=== PATIENT | male | born 1965 | race African-American/Black ===

== ENCOUNTER 2019-04-20 10:36 | Emergency (ER) | payer MEDICAID ==
[~2019-04-20] VITALS: Ht 182.9 cm; Wt 104.5 kg
[2019-04-20 10:41] VITALS: Ht 182.9 cm; Wt 104.5 kg
[2019-04-20] MEDS ORDERED: HYDROCODON-ACE1 EA10 PO (14:02)
[2019-04-20 14:31] VITALS: BP 142/82
== END 2019-04-20 14:31 | disposition home or self-care (01) ==
LOC: D.ER 10:36
DX: M50.30 Other cervical disc degeneration, unspecified cervical region (principal)

== ENCOUNTER 2019-07-12 10:25 | Inpatient (IN) | payer OTHER ==
[~2019-07-12] VITALS: Ht 182.9 cm; Wt 99.7 kg
[~2019-07-12 10:25] MED LIST: HYDROCODON-ACE1 EA10 PO
[2019-07-12 11:33] LABS: BASOPHILS 0.1 % (0-2); EOSINOPHILS 0 % (0-7); HEMATOCRIT 44.1 % (42.0-54.0); IMMATURE GRANULOCYTES 0.5 % (0-5); LYMPHOCYTES 5.7 % (15-50); MCH 33.3 pg (26.0-34.0); MCV 97.8 fL (80.0-100.0); MEAN PLATELET VOLUME 9.9 fL (7.4-10.4); MONOCYTES 5.3 % (2-11); NEUTROPHILS 88.4 % (40-80); PLATELET COUNT 188 10x3/uL (130-400); RBC 4.51 10x6/uL (4.20-6.10); RDW 11.9 % (11.5-14.5)
[2019-07-12 11:44] LABS: ANION GAP 10.8 mmol/L (8-16); CARBON DIOXIDE 26.6 mmol/L (21.0-32.0); CREATININE - SERUM 1.3 mg/dL (0.6-1.3); POTASSIUM - SERUM 3.4 mmol/L (3.5-5.1)
[2019-07-12 11:52] LABS: ALBUMIN 3.6 g/dL (3.4-5.0); BILIRUBIN - TOTAL 1.08 mg/dL (0.2-1.3); PROTEIN - SERUM 7.3 g/dL (6.4-8.2)
[2019-07-12 12:00] LABS: APPEARANCE HAZY (CLEAR); BILIRUBIN NEGATIVE (NEGATIVE); COLOR YELLOW (YELLOW); GLUCOSE NEGATIVE (NEGATIVE); KETONE MODERATE mg/dL (NEGATIVE); NITRITE POSITIVE (NEGATIVE); PROTEIN 1+ mg/dL (NEGATIVE); UROBILINOGEN NORMAL (NORMAL)
[2019-07-12 12:05] LABS: BACTERIA MANY /hpf (NEGATIVE); WHITE CELLS - URINE >50 /hpf (NEGATIVE)
--- NOTE | 2019-07-12 13:35 | NUR ---
PT RESTING IN BED TALKING WITH FAMILY AT BEDSIDE. WILL CON'T TO MONITOR FOR CHANGES
--- NOTE | 2019-07-12 13:43 | NUR ---
ANNEMARIE GONZALES, AT BEDSIDE.
--- NOTE | 2019-07-12 14:05 | NUR ---
RECEIVED PT TO ROOM 2129 VIA WHEELCHAIR, PT ABLE TO AMBULATE WITH NO PROBLEMS. PT A/O X4, RESP EVEN AND NONLABORED ON RA. ORIENTED PT TO ROOM AND CALL LIGHT. WILL ASSESS PT AND START PLAN OF CARE.
[2019-07-12 14:33] VITALS: BP 148/95; BMI 28.8
[2019-07-12 15:58] VITALS: BP 148/95
[2019-07-12 18:29] LABS: APTT 27.5 SECONDS (22.8-39.4); INR 1.16 (0.85-1.17); PROTIME 14.3 SECONDS (11.6-15.0)
--- NOTE | 2019-07-12 19:20 | NUR ---
RECEIVED REPORT, WILL ASSUME CARE OF PT, AT BED SIDE, DENIES ANY NEEDS, BED IS LOW, SRX2, CALL LIGHT IN REACH, WILL CONTINUE PLAN OF CARE
[2019-07-12 19:48] VITALS: BP 145/103
[2019-07-12 20:08] VITALS: BP 124/74
[2019-07-12 23:50] VITALS: BP 130/88
--- NOTE | 2019-07-13 01:36 | NUR ---
I have reviewed this patient and I concur with the Shift Assessment completed by the Licensed Practical Nurse today this shift.
[2019-07-13 04:00] VITALS: BP 113/74
[2019-07-13 05:40] LABS: BASOPHILS 0.1 % (0-2); EOSINOPHILS 0.1 % (0-7); HEMATOCRIT 39.8 % (42.0-54.0); HEMOGLOBIN 13.5 g/dL (13.5-17.5); IMMATURE GRANULOCYTES 0.3 % (0-5); LYMPHOCYTES 6.8 % (15-50); MCH 33.3 pg (26.0-34.0); MCHC 33.9 g/dL (31.0-37.0); MONOCYTES 8.5 % (2-11); NEUTROPHILS 84.2 % (40-80); PLATELET COUNT 157 10x3/uL (130-400); RBC 4.06 10x6/uL (4.20-6.10)
[2019-07-13 05:47] LABS: WBC 14.4 10x3/uL (4.8-10.8)
[2019-07-13 06:06] LABS: ANION GAP 10.2 mmol/L (8-16); BILIRUBIN - TOTAL 0.81 mg/dL (0.2-1.3); CALCIUM 8.4 mg/dL (8.5-10.1); CARBON DIOXIDE 24.3 mmol/L (21.0-32.0); CREATININE - SERUM 1.3 mg/dL (0.6-1.3); GENTAMICIN - PEAK 0.6 ug/mL (5.0-10.0); POTASSIUM - SERUM 3.5 mmol/L (3.5-5.1)
[2019-07-13 07:52] VITALS: BP 117/79
[2019-07-13 12:00] VITALS: BP 130/76
[2019-07-13 15:47] VITALS: BP 147/95
[2019-07-13 20:00] VITALS: BP 116/95
[2019-07-14 00:34] VITALS: BP 141/87
[2019-07-14 04:00] VITALS: BP 136/89
[2019-07-14 05:53] LABS: BASOPHILS 0.1 % (0-2); EOSINOPHILS 1.5 % (0-7); HEMATOCRIT 37.2 % (42.0-54.0); HEMOGLOBIN 12.6 g/dL (13.5-17.5); IMMATURE GRANULOCYTES 0.2 % (0-5); LYMPHOCYTES 12.5 % (15-50); MCH 32.7 pg (26.0-34.0); MCHC 33.9 g/dL (31.0-37.0); MCV 96.6 fL (80.0-100.0); MEAN PLATELET VOLUME 10.3 fL (7.4-10.4); MONOCYTES 12.8 % (2-11); NEUTROPHILS 72.9 % (40-80); PLATELET COUNT 179 10x3/uL (130-400); RBC 3.85 10x6/uL (4.20-6.10); RDW 11.9 % (11.5-14.5)
[2019-07-14 05:57] LABS: WBC 8.4 10x3/uL (4.8-10.8)
[2019-07-14 06:37] LABS: ALBUMIN 2.6 g/dL (3.4-5.0); BILIRUBIN - TOTAL 0.43 mg/dL (0.2-1.3); CARBON DIOXIDE 24.4 mmol/L (21.0-32.0); CREATININE - SERUM 1.1 mg/dL (0.6-1.3); POTASSIUM - SERUM 3.4 mmol/L (3.5-5.1); PROTEIN - SERUM 6.6 g/dL (6.4-8.2)
--- NOTE | 2019-07-14 07:16 | NUR ---
PT RESTING PEACEUFLLY. BREATHS EVEN/REGUALR AND UNLABORED. AT BEDSIDE. NO COMPLAINTS/CONCERNS NOTED AT THIS TIME. CL IN REACH, SRX2.
[2019-07-14 07:38] VITALS: BP 133/88
[2019-07-14 10:59] VITALS: Ht 182.9 cm; Wt 99.7 kg
[2019-07-14 11:27] VITALS: BP 138/101
[2019-07-14 15:06] VITALS: BP 133/93
--- NOTE | 2019-07-14 15:15 | NUR ---
I have reviewed this patient and I concur with the Shift Assessment completed by the Licensed Practical Nurse today this shift.
--- NOTE | 2019-07-14 17:56 | NUR ---
RESITED I/V LFA. PT SCREAMED. I/V WORKS WELL. 20G
--- NOTE | 2019-07-14 19:30 | NUR ---
RECEIVED BEDSIDE REPORT. PATIENT IS ALERT AND ORIENTED, SITTING ON SIDE OF BED. PATIENT VERY EXCITED THAT HE HAS ATE ALOT OF FOOD TONIGHT. RESPIRATIONS ARE EVEN AND UNLABORED. NO S/S OF DISTRESS. NO C/O PAIN. CALL LIGHT WITHIN REACH. WILL CPOC.
[2019-07-14 20:00] VITALS: BP 160/107
[2019-07-15] VITALS: BP 155/86
[2019-07-15 04:27] VITALS: BP 111/73
[2019-07-15 05:56] LABS: BASOPHILS 0.2 % (0-2); EOSINOPHILS 1.5 % (0-7); HEMATOCRIT 40.1 % (42.0-54.0); HEMOGLOBIN 13.7 g/dL (13.5-17.5); IMMATURE GRANULOCYTES 0.2 % (0-5); LYMPHOCYTES 21.2 % (15-50); MCH 32.9 pg (26.0-34.0); MCHC 34.2 g/dL (31.0-37.0); MCV 96.4 fL (80.0-100.0); MEAN PLATELET VOLUME 10.1 fL (7.4-10.4); MONOCYTES 18.5 % (2-11); NEUTROPHILS 58.4 % (40-80); PLATELET COUNT 199 10x3/uL (130-400); RBC 4.16 10x6/uL (4.20-6.10); WBC 5.3 10x3/uL (4.8-10.8)
[2019-07-15 05:59] LABS: ANION GAP 12.2 mmol/L (8-16); BILIRUBIN - TOTAL 0.33 mg/dL (0.2-1.3); CALCIUM 8.7 mg/dL (8.5-10.1); CARBON DIOXIDE 24.1 mmol/L (21.0-32.0); CREATININE - SERUM 1.1 mg/dL (0.6-1.3); POTASSIUM - SERUM 3.3 mmol/L (3.5-5.1); PROTEIN - SERUM 7.2 g/dL (6.4-8.2)
[2019-07-15 07:37] VITALS: BP 134/89
--- NOTE | 2019-07-15 08:00 | NUR ---
PATIENT RESTING QIUETLY IN THE BED WITH EYES CLOSED. AT BEDSIDE. IV TO THE LEFT FOREARM IS INFUSING NORMAL SALINE. BREAKFAST TRAY SITTING TO THE SIDE OF THE PATIENT UNTOUCHED. THERE ARE NO COMPLAINTS OF PAIN AT THIS TIME. BED IS IN LOW POSITION AND CALL LIGHT IS IN REACH.
[2019-07-15 11:10] VITALS: BP 122/88
[2019-07-15] MEDS ORDERED: PROTONIX40 MG PO (12:27)
[2019-07-15] MEDS ORDERED: CIPRO500 MG PO (12:27)
--- NOTE | 2019-07-15 13:34 | NUR ---
UPON ADMIT PATIENT HAS NOT HAD A FLU SHOT. HE IS GOING HOME ON [facility] FOR ONE MONTH. WILL NOT GET A FLU SHOT AT THIS TIME.
--- NOTE | 2019-07-15 13:41 | MORECARE ---
CASE MANAGEMENT DISCHARGE SUMMARY PATIENT: TULIO MEADE UNIT: [id number] ADM DATE: 07/12/19 AGE: 54 : 67 SEX: M ROOM/BED: D.2130 AUTHOR: VICTORIADOC PHYSICIAN: REFERRING PHYSICIAN: GERALD GASTON MD DATE OF SERVICE: 07/15/19 Discharge Plan Patient Name: TULIO MEADE Facility: [facility]:[place] : 1965 Planned Disposition: Home Anticipated Discharge Date: 07/15/19 Discharge Date: Expected LOS: 3 Initial Reviewer: [email or web address] Initial Review Date: 07/15/2019 Generated: 07/15/19 2:41 pm Comments DCP- Discharge Planning Updated by [email or web address]: Joon Mclean on 07/15/19 12:[address] Patient Name: TULIO MEADE Admission Status: ER Accout number: [id number] Admission Date: 07-12-2019 : 1965 Admission Diagnosis: Attending: GERALD GASTON Current LOS: 3 Anticipated DC Date: 07-15-2019 Planned Disposition: Home Primary Insurance: [employer] Discharge Planning Comments: CM MET WITH PT IN ROOM TO DISCUSS DISCHARGE PLANNING AND NEEDS. PT REPORTS LIVING AT HOME INDEPENDENTLY WITH HIS GIRLFRIEND. PT HAS NO MEDICAL EQUIPMENT AND NO OUTSIDE SERVICES ASSISTING IN THE HOME. CM DISCUSSED AVAILABILITY OF HOME HEALTH, REHAB SERVICES AND MEDICAL EQUIPMENT. PT DENIES DISCHARGE NEEDS, REPORTS HIS GIRLFRIEND IS HERE TO PICK HIM UP FOR DISCHARGE HOME. Faculty I On Call Medical Assistant: Joon Mclean DCPIA - Discharge Planning Initial Assessment Updated by [email or web address]: Joon Mclean on 07/15/19 1:37 pm * Is the patient Alert and Oriented? Yes * How many steps to enter\\exit or inside your home? * PCP NONE, PATIENT REPORTS TO BE "WORKING ON IT" * Pharmacy [facility] * Preadmission Environment Home with Family * ADLs Independent * Equipment None * Other Equipment NO MEDICAL EQUIPMENT PROVIDER PREFERENCE * List name and contact numbers for known caregivers / representatives who currently or will assist patient after discharge: ANNEMARIE MONCADA, MOTHER, * Verbal permission to speak to the caregivers and representatives has been obtained from the patient. N/A * Community resources currently utilized None * Please name any agencies selected above. NONE * Additional services required to return to the preadmission environment? No * Can the patient safely return to the preadmission environment? Yes * Has this patient been hospitalized within the prior 30 days at any hospital? No Patient Name: TULIO MEADE Page [phone] at 1341 All edits/amendments must be made on the electronic document DICTATION DATE: 07/15/19 134 SALES SERVICE MANAGER: TACO 07/15/19 1341 RPT#: [id number] DC DATE: STATUS: ADM IN [facility] [address] [place] [address] END OF REPORT
--- NOTE | 2019-07-22 11:41 | EC ---
PATIENT:TULIO MEADE DATE OF SERVICE: 07/12/19 SEX: M MEDICAL RECORD: [id number] DATE OF : 67 LOCATION:D.M2 D.213 AGE OF PATIENT: 54 ADMISSION DATE: 07/12/19 REFERRING PHYSICIAN: INTERPRETING PHYSICIAN: CRISTIAN MCCRARY MD ECHOCARDIOGRAM REPORT ECHO CHARGES 4 ECHO COMPLETE Date: 07/14/19 CLINICAL DIAGNOSIS: R/O VEGITATION ECHOCARDIOGRAPHIC MEASUREMENTS (adult normal given) AC root (d.<3.7cm) 3.2 cm LV Septum d (<1.2 cm> 0.5 cm Valve Excursion 1.6 cm LV Septum (systole) 1.2 cm Left Atria (s.<4.0cm> 3.6 cm LVPW d(<1.2cm) 1.1 cm RV (d.<2.3cm) 3.3 cm LVPW (sytole) 1.3 cm LV diastole(<5.6CM) 5.4 cm MV E-F(>70mm/sec) cm LV systole 3.8 cm LVOT Diameter 2.0 cm MV exc.(>10mm) cm Est.ejection fraction (50-75%) % DOPPLER: LVIT cm/sec A 69 cm/sec E 76 cm/sec LA cm/sec RVSP 29.9 mmHg LVOT 90 cm/sec AOP1/2T m/s Asc. Ao 120 cm/sec RVOT 58 cm/sec RA cm/sec PA 81 cm/sec AV Gradient Peak 5.7 mmHg AV Mean 3.1 mmHg AV Area 2.2 cm MV Gradient Peak 2.5 mmHg MV Mean 1.7 mmHg MV Area cm COMMENTS: Pin Sorter And Bagger: Kavya [facility] Gas Pump Attendant: 1 Dr. Mccrary TAPE# PACS Pericardial Effusion N DATE OF SERVICE: FINDINGS: 1. Left ventricular chamber size is within normal limits. Left ventricular systolic function is normal. Overall ejection fraction estimated at 55%. 2. Left atrium is within normal limits. Right atrium and right ventricle chamber sizes are mildly dilated. 3. Valvular structures have normal structure and motion. No evidence of vegetative endocarditis. 4. Doppler interrogation reveals mild mitral regurgitation, mild tricuspid ECHOCARDIOGRAM REPORT [id number] TULIO MEADE regurgitation, no other valvular insufficiency or stenosis. Pulmonary systolic pressure is normal estimated at 30 mmHg. 5. No evidence of pericardial effusion or left ventricular thrombus. TRANSINT:[id number] Voice Confirmation ID: [id number] DOCUMENT ID: [id number] CRISTIAN MCCRARY MD at 1141 CC: [id number] DICTATION DATE: 07/15/19 1052 [employer]: 07/16/19 0307 DIS IN 07/15/[address] [facility] [address] [id number]
== END 2019-07-15 14:55 | disposition home or self-care (01) | DRG 872 ==
LOC: D.ER 10:25 → D.M2 13:26
PROVIDERS: Emergency Medicine; ADMIT Family Medicine; ATTEND Family Medicine
DX: A41.9 Sepsis, unspecified organism (principal); N39.0 Urinary tract infection, site not specified; N41.0 Acute prostatitis; N40.1 Benign prostatic hyperplasia with lower urinary tract symptoms; R39.15 Urgency of urination; E87.6 Hypokalemia; R51 Headache; Z72.89 Other problems related to lifestyle

== ENCOUNTER 2019-12-02 08:55 | Emergency (ER) | payer OTHER ==
[~2019-12-02] VITALS: Ht 182.9 cm; Wt 100.0 kg
[~2019-12-02 08:55] MED LIST changes: +CIPRO500 MG PO; +PROTONIX40 MG PO
[2019-12-02 08:59] VITALS: Ht 182.9 cm; Wt 100.0 kg
[2019-12-02 09:25] LABS: BASOPHILS 0.3 % (0-2); EOSINOPHILS 0.8 % (0-7); HEMATOCRIT 44.4 % (42.0-54.0); HEMOGLOBIN 15.6 g/dL (13.5-17.5); IMMATURE GRANULOCYTES 0.3 % (0-5); LYMPHOCYTES 7.9 % (15-50); MCHC 35.1 g/dL (31.0-37.0); MCV 96.7 fL (80.0-100.0); MEAN PLATELET VOLUME 9.5 fL (7.4-10.4); NEUTROPHILS 75.7 % (40-80); PLATELET COUNT 219 10x3/uL (130-400); RBC 4.59 10x6/uL (4.20-6.10); RDW 12.3 % (11.5-14.5); WBC 7.5 10x3/uL (4.8-10.8)
[2019-12-02 09:27] LABS: CALC OSMOLALITY 276 mosm/kg (275-300); CALCIUM 8.8 mg/dL (8.5-10.1); CARBON DIOXIDE 23.6 mmol/L (21.0-32.0); CHLORIDE - SERUM 105 mmol/L (98-107); CREATININE - SERUM 1.2 mg/dL (0.6-1.3); GLUCOSE 99 mg/dL (74-106); POTASSIUM - SERUM 3.9 mmol/L (3.5-5.1); SODIUM 138 mmol/L (136-145); UREA NITROGEN 16 mg/dL (7-18); eGFR NON AFRICAN AMERICAN 67 mL/min (90-120)
[2019-12-02 09:28] LABS: APTT 29.1 SECONDS (22.8-39.4); INR 0.88 (0.85-1.17); PROTIME 11.9 SECONDS (11.6-15.0)
[2019-12-02 09:45] LABS: ALBUMIN 3.7 g/dL (3.4-5.0); ALKALINE PHOSPHATASE 80 U/L (30-120); ALT (SGPT) 41 U/L (10-68); BILIRUBIN - TOTAL 0.29 mg/dL (0.2-1.3); CKMB 1.4 U/L (0.0-3.6); CREATINE KINASE 364 UL (21-232); PROTEIN - SERUM 7.8 g/dL (6.4-8.2)
[2019-12-02 09:46] LABS: TROPONIN-I < 0.017 ng/mL (0.000-0.060)
[2019-12-02 10:46] LABS: BILIRUBIN NEGATIVE (NEGATIVE); GLUCOSE NEGATIVE (NEGATIVE); KETONE NEGATIVE (NEGATIVE); NITRITE NEGATIVE (NEGATIVE); SPECIFIC GRAVITY 1.015 (1.005-1.020); UROBILINOGEN NORMAL (NORMAL)
[2019-12-02] MEDS ORDERED: TAMIFLU75 MG PO (11:08)
[2019-12-02] MEDS ORDERED: IBUPROFEN800 MG PO (11:08)
[2019-12-02] MEDS ORDERED: ACETAMINOPHEN500 M1 PO (11:08)
[2019-12-02 11:31] VITALS: BP 116/89
== END 2019-12-02 11:35 | disposition home or self-care (01) ==
LOC: D.ER 08:55
PROVIDERS: Family Medicine
DX: J09.X2 Influenza due to identified novel influenza A virus with other respiratory manifestations (principal); R97.20 Elevated prostate specific antigen [PSA]; G89.29 Other chronic pain; N42.9 Disorder of prostate, unspecified